=== PATIENT | male | born 1980 | race African-American/Black ===

== ENCOUNTER 2024-09-10 06:30 | Emergency (ER) | payer BC, SELFPAY ==
[2024-09-10 06:59] VITALS: BP 168/104
--- NOTE | 2024-09-10 07:21 | ED.GENMED ---
History of Present Illness
General
Chief Complaint: Musculo-Skeletal Complaint
Time Seen by Provider: 09/10/24 07:20
History of Present Illness
History of Present Illness:
TIME OF INITIAL ENCOUNTER: 7:25 AM
HPI: The patient presents with 2 months of left-sided back pain. He states he had a similar episode when he was in [place] approximately 7 years ago. He states that he had 'an injection' at that time. He was at [facility] 2 days ago. He recently
saw what appears to be a chiropractor and had plain film imaging but they wanted $6000 'to fix it'. He does not have any symptoms going down the left leg. The left-sided back pain is over the left CVA region. He has no midline pain.
EXAM:
GENERAL: Well appearing in no distress
HEENT: Moist oral mucosa
NEUROLOGIC: Excellent strength all extremities, no obvious coordination deficits
PSYCHIATRIC: Appropriate mental status, normal insight and judgement
BACK: There is no midline L-spine tenderness, negative straight leg raise, excellent strength in the left lower extremity
EXTREMITIES: Nontender, no edema, moves all extremities equally
SKIN: No rash, no lesions
NUMBER AND COMPLEXITY OF PROBLEMS ADDRESSED AT THE ENCOUNTER
� Chronic conditions affecting care: No significant past medical history
� Acute Exacerbation and/or Progression of Chronic Illness: This is an acute but recurring problem
� Differential Diagnosis includes: Musculoskeletal low back pain, sciatica unlikely given the lack of radiating pain, ureteral stone possible given the location of the pain
AMOUNT AND/OR COMPLEXITY OF DATA TO BE REVIEWED AND ANALYZED
� I performed an independent evaluation of and my interpretation is:
EKG:
CT: CAT scan of the abdomen pelvis showed no sign of kidney stones or other concerns
X-rays:
Laboratory Studies:
Other:
� Review of other/old records: No old records available for review
� Clinical information was obtained by an independent historian: None needed
� Prescriptions/Medications Considered but not given:
� Further testing considered but not performed:
RISK OF COMPLICATIONS AND/OR MORBIDITY OR MORTALITY OF PATIENT MANAGEMENT
� Social determinants of health affecting care:
� Discussion with other providers:
� Escalation of care including admission/observation vs risk of discharge considered: The patient spoke Vincentian fairly well however at times I did use Google translate to help assist with translation.
ANY OTHER UPDATES:
9:15 AM: The patient appears fairly comfortable after Toradol was given. Will give short course of narcotic analgesia. He states he does have a follow-up with in less than 2 weeks.
Phy Exam
Physical Exam
Physical Exam:
See HPI
Course
Orders/Labs/Results
Orders:
Orders
09/10/24 07:12
UA Reflex to Culture [Urinalysis Reflex To Culture] Urgent
Date Specimen was Collected: 09/10/24
Time Specimen was Collected: 07:11
09/10/24 07:33
CT Abd/pel Without Iv Or Oral Urgent
Comment:
Reason For Exam: L CVA pain
Ketorolac [Toradol] 30 mg IM NOW STA
Abnormal Lab Results
09/10/24
07:12
Urine Ketones Trace A
(Negative)
Urine Glucose Trace A
(Negative)
Vital Signs
Initial and Last Documented VS:
Initial Vital Signs
Temp Pulse Resp BP Pulse Ox
36.8 C 95 18 168/104 100
09/10/24 06:59 09/10/24 06:59 09/10/24 06:59 09/10/24 06:59 09/10/24 06:59
Last Documented Vital Signs
Temp Pulse Resp BP Pulse Ox
36.8 C 95 18 168/104 100
09/10/24 06:59 09/10/24 06:59 09/10/24 06:59 09/10/24 06:59 09/10/24 06:59
*Critical Care Note
Total Time (30-74mins, 75-104mins- exclusive of procedures): Not Applicable
ED Attending Note
-
Portions of this chart may have been created with voice recognition software.� Occasional wrong word or��sound alike� substitutions may have occurred due to the inherent limitations of voice recognition software.
Discharge Plan
Departure
Patient Disposition: Home (Routine Discharge)
Date of Disposition: 09/10/24
Time of Disposition: 09:13
Patient with high blood pressure during this ER visit?: Yes
Discharge Problem:
Back pain
Instructions: Back Pain, BLOOD PRESSURE
Prescriptions:
New
oxycodone-acetaminophen [Percocet] 5-325 mg tablet
1 - 2 tab PO Q6HPRN PRN (Reason: pain) Qty: 14 0RF
Referrals:
Louie Del Rosario, DO [Family Provider] -
Stand Alone Forms: Return to Work
Activity Restrictions/Additional Instructions:
Le scanner ne montre aucun madison de calculs r�naux ou autre pr�occupation concernant votre douleur. Faites un suivi avec angel m�decins le mois prochain. Revenez ici si pire. J'envoie � votre pharmacie une ordonnance pour lucy analg�siques pour
quelques jours. J'ai joint une note de travail.
Interventions
Interventions:
*Risk Screen - Suicide Last Done: 09/10/24 06:59
*General Assessment Last Done: 09/10/24 06:59
*Neglect/Abuse Screening Last Done: 09/10/24 06:59
*ED COVID-19 Vaccine History Last Done: 09/10/24 06:59
BM-Evgudo-Iaasvubnpl Assessment Last Done: 09/10/24 08:11
ED-Male Genitourinary Assessment Last Done: 09/10/24 08:11
ED-Musculoskeletal Assessment Last Done: 09/10/24 08:11
Discharge Date and Time
Print Language: ROMANIAN
[2024-09-10] MEDS: TORADOL 30 MG IM (07:57)
[2024-09-10 08:00] VITALS: BP 162/89
[2024-09-10 08:08] LABS: Urine Albumin Trace (Neg - Trace); Urine Bilirubin Negative (Negative); Urine Character Clear (Clear); Urine Color Yellow; Urine Glucose Trace (Negative); Urine Ketone Trace (Negative); Urine Leukocyte Negative (Negative); Urine Nitrite Negative (Negative); Urine Occult Blood Negative (Negative); Urine Urobilinogen Negative (Neg - 1+)
[2024-09-10 09:27] VITALS: BP 168/84
== END 2024-09-10 09:32 | disposition home or self-care (01) ==
LOC: EMR 06:30
PROVIDERS: EMERGENCY PHYSICIAN Emergency Medicine; FAMILY PHYSICIAN Family Medicine
DX: M54.50 Low back pain, unspecified (principal); R03.0 Elevated blood-pressure reading, without diagnosis of hypertension
CPT/HCPCS: 96372; 99284; 74176; 81003

== ENCOUNTER 2024-09-22 08:26 | Emergency (ER) | payer BC, SELFPAY ==
[2024-09-22 08:27] VITALS: BP 163/112
[2024-09-22 08:30] VITALS: BP 163/100
--- NOTE | 2024-09-22 09:42 | ED.GENMED ---
History of Present Illness
<Henry Crews MD, Resident - Last Filed: 09/22/24 14:29>
General
Chief Complaint: Back Pain
Source: patient
Time Seen by Provider: 09/22/24 09:24
Nursing documentation reviewed up to this point in time: agreed with
Travel History
Have you traveled to any high risk areas for coronavirus over the past 14 days?: No
Have you had any contact with someone who has COVID-19?: No
Do you have any symptoms of coronavirus? Fever > 100 degrees, chills, cough, shortness of breath, sore throat, loss of taste or smell, muscle aches, or headache?: No
History of Present Illness
History of Present Illness:
This is a 43-year-old male from [facility] who presents today to the emergency department with low back pain radiating to the left lower back. Pain is rated 8/10, worse on palpation, when he wakes up and when he stands for a long time. Has not
identified any alleviating factors. Pain initially started in [place] several years ago and improved with injection of a mixture of Miorel (international brand of baclofen), Nucleo CMP forte (composed of 3 mg of uridine monophosphate and 5 mg of
cytidine monophosphate), and Acupan/Nefopam(A centrally acting nonopioid serotonin, norepinephrine and dopamine reuptake inhibitor) and has not had this pain for the past 7 years. Patient reports that 3 months ago, the pain started again. He was
seen here in the ED 2 weeks ago for the same problem. At that time, a CT scan of abdomen and pelvis with and without IV and oral contrast revealed no abnormalities. He was treated with ketorolac which she reports did not help. He reports seeing
an outpatient chiropractor but his pain has not resolved. He does not take any regular medications at home. He does not smoke and drinks socially. He denies chest pain, shortness of breath, fever, chills, urinary symptoms. He also denies recent
or remote trauma. He works in a [employer] industry where he spends most of the time on his feet but has not walked for the past 3 weeks due to pain.
Past History
<Henry Crews MD, Resident - Last Filed: 09/22/24 14:29>
Past History
ED Past Medical History: None
ED Past Surgical History: None
Social History
Tobacco: Non-smoker
Alcohol: Occasional
Drug: None
Personal: Single
Living: alone
Employment: Employed
Review of Systems
<Henry Crews MD, Resident - Last Filed: 09/22/24 14:29>
Review of Systems
All Other Systems: ROS reviewed and negative except as documented in HPI and ROS
Phy Exam
<Henry Crews MD, Resident - Last Filed: 09/22/24 14:29>
Physical Exam
Physical Exam:
GENERAL: Alert and oriented x 3, NAD. Afebrile
HEAD: NC/AT
OROPHARYNX: no exudate or ulcers.
EYE: pupils equal and reactive extraocular muscles
NECK: Supple, no significant adenopathy.
CARDIAC: Regular rate and rhythm without any obvious murmurs.
LUNGS: Normal breath sounds,normal-no rhonchi. Not bronchospastic.
ABDOMEN: Soft, NT, ND, no peritoneal signs.
NEUROLOGICAL: Alert and oriented x 3. No focal neurological deficit.
SKIN: Warm and dry, no rash or lesion, no discoloration, skin intact.
MUSCULOSKELETAL: Full range of motion of extremities. Mild tenderness left/mid lower back
LYMPHATIC:No lymph nodes on his neck or supraclavicular area.
PSYCH: Normal and appropriate interaction.
Musculoskeletal Exam
Musculoskeletal Exam: full ROM and back tenderness (Mid back, left lower back)
Course
<Henry Crews MD, Resident - Last Filed: 09/22/24 14:29>
Orders/Labs/Results
Orders:
Orders
09/22/24 10:03
CRP [C-Reactive Protein] Urgent
Complete Blood Count/With Diff Urgent
Comprehensive Metabolic Panel Urgent
ESR [Erythrocyte Sed Rate] Urgent
09/22/24 10:27
Dexamethasone Sod Phosphate [Decadron] 10 mg IV NOW STA
Ketorolac [Toradol] 30 mg IV NOW STA
Abnormal Lab Results
09/22/24
10:03
MPV 10.6 H fL
(7.4-10.4)
Albumin 5.1 H g/dl
(3.5-5.0)
09/22/24 10:03
09/22/24 10:03
Vital Signs
Initial and Last Documented VS:
Initial Vital Signs
Temp Pulse BP Pulse Ox
98.0 F 89 163/112 98
09/22/24 08:27 09/22/24 08:27 09/22/24 08:27 09/22/24 08:27
Last Documented Vital Signs
Temp Pulse Resp BP Pulse Ox
98.2 F 75 18 156/102 99
09/22/24 10:52 09/22/24 10:52 09/22/24 10:52 09/22/24 10:52 09/22/24 10:52
<Brendan Sarabia, DO - Last Filed: 09/22/24 10:26>
Orders/Labs/Results
Orders:
Orders
09/22/24 10:03
CRP [C-Reactive Protein] Urgent
Complete Blood Count/With Diff Urgent
Comprehensive Metabolic Panel Urgent
ESR [Erythrocyte Sed Rate] Urgent
09/22/24 10:27
Dexamethasone Sod Phosphate [Decadron] 10 mg IV NOW STA
Ketorolac [Toradol] 30 mg IV NOW STA
Abnormal Lab Results
09/22/24
10:03
MPV 10.6 H fL
(7.4-10.4)
Albumin 5.1 H g/dl
(3.5-5.0)
09/22/24 10:03
09/22/24 10:03
Vital Signs
Initial and Last Documented VS:
Initial Vital Signs
Temp Pulse BP Pulse Ox
98.0 F 89 163/112 98
09/22/24 08:27 09/22/24 08:27 09/22/24 08:27 09/22/24 08:27
Last Documented Vital Signs
Temp Pulse Resp BP Pulse Ox
98.2 F 75 18 156/102 99
09/22/24 10:52 09/22/24 10:52 09/22/24 10:52 09/22/24 10:52 09/22/24 10:52
<Henry Crews MD, Resident - Last Filed: 09/22/24 14:29>
MDM/Problems Addressed
MDM/Problems Addressed:
43-year-old male who presented to the emergency department with recurrent low back pain rated 8/10 that radiates to the left lower back for 3 months. Straight leg test negative. Suspect musculoskeletal pain, sacroiliac joint dysfunction vs
radiculopathy. Other less likely etiologies include AAA (given his age, does not smoke), appears zoster, sciatica (negative physical exam), nephrolithiasis (negative recent CT). CBC, CMP, ESR, CRP pending. Will treat with 30 mg IV Toradol and 10
mg IV dexamethasone and monitor. If he improves, we discharged on 10 mg Toradol for 5 days, heating pad and give referral to family medicine residency clinic for follow-up since he does not have a PCP.
<Henry Crews MD, Resident - Last Filed: 09/22/24 14:29>
*Critical Care Note
Total Time (30-74mins, 75-104mins- exclusive of procedures): Not Applicable
Data Reviewed
Review of Other/Old Records Reveals: Radiology Studies (CT abdomen/pelvis with and without IV and oral contrast 11/08/2024:1. No significant acute abnormality identified in the abdomen or pelvis, within the limits of unenhanced CT, as described
above. 2. Nonobstructing bilateral renal calculi.)
Source: records
<Henry Crews MD, Resident - Last Filed: 09/22/24 14:29>
Update Note
Update Note:
Patient feeling better with Toradol and dexamethasone injection. His labs looks okay. There is no indication to obtain further imaging at this point. He is stable for discharge. Rx for 10 mg 3 times daily as needed of baclofen for 10 days sent
to preferred pharmacy and instructions given to follow-up with PCP.
ED Attending Note
<Henry Crews MD, Resident - Last Filed: 09/22/24 14:29>
-
Portions of this chart may have been created with voice recognition software.� Occasional wrong word or��sound alike� substitutions may have occurred due to the inherent limitations of voice recognition software.
<Brendan Sarabia DO - Last Filed: 09/22/24 10:26>
ED Attending Note
Patient seen and examined by attending physician: Yes
I performed the substantive portion of visit, reviewed & personally made and approve the management plan that is documented in note by myself or JOAQUIN.: Yes
ED Attending Note:
Seen with resident examined independently acute on chronic back pain second ER visit no relief with Percocet will check CBC and inflammatory markers started on nonsteroidals will try to get him some outpatient follow-up/PCP
Discharge Plan
Departure
Patient Disposition: Home (Routine Discharge)
Date of Disposition: 09/22/24
Time of Disposition: 11:56
Patient with high blood pressure during this ER visit?: Yes
Condition: Good
Covid-19: Not Applicable
Discharge Problem:
Spasm of muscle of lower back, Essential hypertension
Instructions: Low Back Pain (DC), Muscle Spasm ED
Prescriptions:
New
baclofen 10 mg tablet
10 mg PO TID Qty: 30 0RF
No Action
oxycodone-acetaminophen [Percocet] 5-325 mg tablet
1 - 2 tab PO Q6HPRN PRN (Reason: pain) Qty: 14 0RF
Referrals:
[facility] [Outside] - Follow up in 1 week
Louie Del Rosario DO [Family Provider] - Follow up in 2-3 days
Stand Alone Forms: Return to Work
Activity Restrictions/Additional Instructions:
It was a pleasure meeting you and taking part in your care. We hope for your continued healing and wellness.
You presented with low back pain. Your labs including ESR and CRP were all normal. You are treated with a dose of steroid and Toradol injection and you are feeling better.
Please read discharge instructions in their entirety. However, they are for general education and may not describe your exact diagnosis at discharge. Information on your ER visit and medical conditions were discussed with you along with appropriate
follow up information.
If indicated, please take your medications as prescribed and follow up with your primary care provider and/or other healthcare provider involved in your care for any further adjustments to your medication regimen as necessary.
You may return to the emergency department if you start having weakness, bleeding, fever, inability to walk, nausea, vomiting.
Please schedule a follow up appointment as directed. Call to schedule an appointment.
Please return to the emergency department with ANY change in, persisting, or worsening of symptoms. If any of your symptoms do not improve, or persist, or become more severe within 6-12 hours, please return to the emergency department for further
care. You may also return to the emergency department if you develop a headache, neck pain/stiffness, fever greater than 100.4F, chest pain, shortness of breath, persistent nausea, vomiting, slurred speech, difficulty walking, numbness/tingling,
weakness, signs of infection or any other symptoms that are worrisome to you.
If you have any questions or concerns please do not hesitate to call the Hospital at .
Interventions
Interventions:
*Risk Screen - Suicide Last Done: 09/22/24 08:30
*General Assessment Last Done: 09/22/24 09:17
*Neglect/Abuse Screening Last Done: 09/22/24 08:30
ED- Fall Risk Assessment Last Done: 09/22/24 09:17
*ED COVID-19 Vaccine History Last Done: 09/22/24 09:16
*Nursing Disposition Last Done: 09/22/24 12:10
ED-Musculoskeletal Assessment Last Done: 09/22/24 09:17
Discharge Date and Time
Discharge Date/Time: 09/22/24 12:11
Print Language: SLOVENIAN
[2024-09-22 10:17] LABS: % Basophils 0.2 % (0-2); % Eosinophils 1.9 % (0-6); % Immature Granulocytes 0.4 % (0-0.5); % Lymphocytes 33.1 % (20.5-51.1); % Monocytes 8.3 % (1.7-9.3); % Neutrophils 56.1 % (42.2-75.2); Absolute Eosinophils 0.1 10^3/uL (0-0.7); Absolute Lymphocytes 1.7 10^3/uL (1.2-3.4); Absolute Monocytes 0.4 10^3/uL (0.1-0.6); Absolute Neutrophils 2.9 10^3/uL (1.4-6.5); Hematocrit 45.2 % (39.0-52.0); Hemoglobin 15.1 g/dL (13.0-18.0); Mean Corp Hgb Conc. 33.4 g/dL (33.0-37.0); Mean Corpuscular Hgb 29.4 pg (27.0-31.0); Mean Corpuscular Volume 88.1 fL (80.0-94.0); Mean Platelet Volume 10.6 fL (7.4-10.4); Nucleated Red Blood Cells % 0 % (-); Platelet Count 153 10^3/uL (130-400); Red Blood Cell Count 5.13 10^6/uL (4.70-6.10); Red Cell Dist. Width 13.2 % (11.5-14.5); White Blood Cell Count 5.2 10^3/uL (4.8-10.8)
[2024-09-22] MEDS: TORADOL 30 MG IV (10:32)
[2024-09-22] MEDS: DECADRON 10 MG IV (10:32)
[2024-09-22 10:50] LABS: Erythrocyte Sed Rate 11 mm/hour (0-20)
[2024-09-22 10:52] VITALS: BP 156/102
[2024-09-22 11:00] LABS: C-Reactive Protein < 5.00 mg/L (0.0-10.00)
[2024-09-22 11:03] LABS: ALT (SGPT) 25 U/L (0-50); AST (SGOT) 22 U/L (17-59); Albumin 5.1 g/dl (3.5-5.0); Alkaline Phosphatase 72 U/L (38-126); Blood Urea Nitrogen 13 mg/dl (9-20); Carbon Dioxide 29 mmol/L (22-30); Chloride 101 mmol/L (98-107); Glucose 91 mg/dl (70-99); Sodium 139 mmol/L (135-145); Total Bilirubin 0.7 mg/dl (0.2-1.3); Total Protein 8.1 g/dl (6.3-8.2); eGFR > 60.00
== END 2024-09-22 12:11 | disposition home or self-care (01) ==
LOC: EMR 08:26
PROVIDERS: Student in an Organized Health Care Education/Training Program; EMERGENCY PHYSICIAN Emergency Medicine; FAMILY PHYSICIAN Family Medicine
DX: M62.830 Muscle spasm of back (principal); I10 Essential (primary) hypertension
CPT/HCPCS: 99284; 96374; 96375; 80053; 85025; 85652; 86140